=== PATIENT | male | born 1950 | race Caucasian/White ===

== ENCOUNTER 2019-01-19 11:10 | Emergency (ER) | payer OTHER, BC ==
[~2019-01-19] VITALS: Ht 180.3 cm; Wt 72.7 kg
[2019-01-19] MEDS ORDERED: FISH7.5C PO (12:07)
[2019-01-19] MEDS ORDERED: SYMB80INH INH (12:07)
[2019-01-19] MEDS ORDERED: IRON27TA2 PO (12:07)
[2019-01-19] MEDS ORDERED: VITA1TAB23 PO (12:07)
[2019-01-19] MEDS ORDERED: LOSA100T50 PO (12:07)
[2019-01-19] MEDS ORDERED: TOPR25TA PO (12:07)
[2019-01-19] MEDS ORDERED: VENTAER INH (12:07)
[2019-01-19] MEDS ORDERED: SPIR1CAP INH (12:07)
[2019-01-19] MEDS ORDERED: ASPI81TA85 PO (12:07)
[2019-01-19] MEDS ORDERED: ATOR1TAB19 PO (12:07)
[2019-01-19] MEDS ORDERED: KELP100T PO (12:07)
[2019-01-19] MEDS ORDERED: VITA10002 PO (12:07)
[2019-01-19] MEDS ORDERED: SING10TA32 PO (12:09)
--- NOTE | 2019-01-19 12:26 | REP ---
CT Head without contrast HISTORY: Fall COMPARISON: None There is no intraparenchymal hemorrhage, acute infarct, mass or midline shift. The ventricular system and cortical sulci are dilated consistent with minimal volume loss. There is no extra cerebral collection. There is no fracture. The visualized sinuses are clear. IMPRESSION: Minimal volume loss. Electronically Signed by Augie Felipe MD 01/19/2019 12:18 P
--- NOTE | 2019-01-19 12:30 | REP ---
CT cervical spine without contrast HISTORY: Fall COMPARISON: None There is no acute fracture or subluxation. Disc bulges are present at the C3-4 and C4-5 levels. A disc bulge with associated osteophyte formation is present at the C5-6 level. There is minimal narrowing of the spinal canal. Uncinate process hypertrophy is present at the C3-4 through C5-6 levels. These findings produce minimal to moderate narrowing of the neural foramina. The 03/04 and C5-6 intervertebral discs are decreased in height consistent with disc degeneration. IMPRESSION: 1. There is no acute fracture or subluxation. 2. There is cervical spondylosis at the C3-4 through C5-6 levels. Electronically Signed by Augie Felipe MD 01/19/2019 12:21 P
[2019-01-19 13:30] VITALS: BP 139/67
== END 2019-01-19 13:58 | disposition home or self-care (01) ==
LOC: EDBD 11:10 → M ED 11:10
DX: S30.0XXA Contusion of lower back and pelvis, initial encounter (principal); W00.0XXA Fall on same level due to ice and snow, initial encounter; Y92.410 Unspecified street and highway as the place of occurrence of the external cause; I10 Essential (primary) hypertension; J45.909 Unspecified asthma, uncomplicated; E78.5 Hyperlipidemia, unspecified